=== PATIENT | female | born 1990 | race Caucasian/White ===

== ENCOUNTER 2020-05-18 09:02 | Emergency (ER) | payer OTHER ==
[~2020-05-18] VITALS: Ht 172.7 cm; Wt 75.5 kg
[2020-05-18 09:12] VITALS: TEMP 99.1
[2020-05-18 12:54] VITALS: BP 123/68; PULSE 78
[2020-05-19 10:30] LABS: COLLECTION METHOD CLEAN CATCH
[2020-05-19 11:55] LABS: ALBUMIN 4.1 gm/dL (3.5-5.0); BILIRUBIN,TOTAL 0.5 mg/dL (0.0-1.0); C-REACTIVE PROTEIN 0.7 mg/dL (0.0-0.9); CALCIUM 8.9 mg/dL (8.4-10.2); CREATININE, serum 0.68 (0.52-1.25); POTASSIUM 3.8 mmol/L (3.4-5.0); TOTAL PROTEIN 6.8 gm/dL (6.4-8.2)
[2020-05-19 11:56] LABS: PH 6 (5-8); URINE APPEARANCE Clear; URINE BILIRUBIN Negative (NEGATIVE); URINE BLOOD Negative (NEGATIVE); URINE COLOR Yellow; URINE GLUCOSE Negative (NEGATIVE); URINE LEUKOCYTE ESTERASE Negative (NEGATIVE); URINE NITRATE Negative (NEGATIVE); URINE PROTEIN(semi-quant) Negative (NEGATIVE); URINE UROBILINOGEN Negative (NEGATIVE)
[2020-05-19 11:57] LABS: MUCOUS Present /lpf; SQUAMOUS EPITHELIAL None Seen /hpf; URINE BACTERIA None Seen /hpf; URINE KETONE 1+ (NEGATIVE); URINE RBC 0-2 /hpf
[2020-05-19 16:54] LABS: BASO # 0.1 (0.0-0.2); BASO % 0.8 % (0.0-2.0); EOS # 0.1 (0.0-0.7); EOS % 0.9 % (0-4.0); GRAN # 4.7 (1.4-6.5); GRAN % 59.5 % (42.2-75.2); HEMATOCRIT 38.3 % (37.0-47.0); HEMOGLOBIN 13.3 g/dl (12.5-16.0); LYMPH # 2.4 (1.2-3.4); LYMPH % 30.8 % (20.0-51.0); MEAN CELL VOLUME 89 fl (80.0-100.0); MEAN CORPUSCULAR HEMOGLOBIN 31 pg (27.0-31.0); MEAN CORPUSCULAR HGB CONC 35 g/dl (33.0-37.0); MONO # 0.6 (0.1-0.6); MONO % 7.7 % (1.7-9.3); PLATELET COUNT 144 K/mm3 (130-400); RED BLOOD COUNT 4.31 M/mm3 (4.10-5.30); REDCELL DISTRIBUTION WIDTH-CV 11.5 % (11.5-14.5)
== END 2020-05-18 12:54 | disposition home or self-care (01) ==
LOC: COL.ER 09:02
PROVIDERS: Emergency Medicine
DX: K29.70 Gastritis, unspecified, without bleeding (principal); M25.562 Pain in left knee; Z32.02 Encounter for pregnancy test, result negative; Z88.8 Allergy status to other drugs, medicaments and biological substances
CPT/HCPCS: J1885; J7030

== ENCOUNTER → 2020-12-20 | Outpatient (CLI) | payer OTHER | LOC: MHCPAIN 09:24 | DX: M54.81 Occipital neuralgia (principal); M79.18 Myalgia, other site; R51.9 Headache, unspecified | CPT/HCPCS: G0463 ==

== ENCOUNTER → 2020-12-28 | Outpatient (CLI) | payer OTHER | LOC: MHCPAIN 09:30 | DX: M54.81 Occipital neuralgia (principal); M54.2 Cervicalgia | CPT/HCPCS: J1040 ==

== ENCOUNTER → 2021-01-10 | Outpatient (CLI) | payer OTHER | LOC: MHCPAIN 08:44 | DX: R51.9 Headache, unspecified (principal); M54.81 Occipital neuralgia; M54.2 Cervicalgia | CPT/HCPCS: G0463 ==

== ENCOUNTER 2023-03-22 10:00 | Outpatient (RCR) | payer BC | END 2023-03-24 | disposition home or self-care (01) | LOC: WSOT | DX: M79.641 Pain in right hand (principal) ==